=== PATIENT | female | born 1960 | race Caucasian/White ===

== ENCOUNTER 2023-07-17 15:34 | Outpatient (RCR) | payer OTHER ==
[~2023-07-17 15:34] MED LIST: ALBUTEROL0.09 MG/A1 IH; AMITRIPTYLINE H25 M1 PO; ANTIVERT 12.512.5 MG PO; ASPIRIN 81M81 MG/TA2 PO; B-12 100 MCG PO; CALCIUM 600-D 61 TAB PO; CEPHALEXIN500 M1 PO; CIPRO 500MG TA500 MG PO; COLESTID 1GM1 G PO; CREON 60000 U-11 ECC PO; CYMBALTA 60MG60 MG PO; DITROPAN 5MG TAB5 MG PO; ERYTHROCIN STE250 M1 PO; ESTRACE 1MG1 MG/TAB PO; FLOMAX 0.40.4 MG/CAP PO; IBU800 M1 PO; IBUPROFEN 200200 MG PO; LEVAQUIN 5500 MG/TAB PO; LINZESS290CAP; MOBIC 7.5MG7.5 MG PO; MOTRIN 800800 MG/TAB PO; MOTRIN SUSP20 MG/ML PO; MULTI VITAMINS1 TAB PO; MYRBETR50MG PO; NEURONTIN100 MG/CAP PO; NORCO 325 MG-51 TAB PO; NORVASC 5MG5 MG/TAB PO; ONE-A-DAY ESSE1 EACH PO; PERCOCET 5/321 UDTAB PO; PRILOSEC 20MG20 MG PO; PYRIDIUM 100MG100 MG PO; REGLAN 10MG10 MG/TAB PO; ROCEPHIN2 GM IJ; RT SPIRIVA18 MCG IH; SENOKOT S 50 MG1 TAB PO; SYNTHROID0.088 MG/T PO; TAMBOCOR50 MG PO; THEO-DUR 2200 MG/TAB PO; TOPROL XL 25MG25 MG PO; TOVIAZ8 MG PO; UNIPHYL 400MG400 MG PO; UREX1 GM PO; VICODIN PO; XANAX 0.5MG0.5 MG PO; [UNRECOGNIZED DRUG - CODE] IV
== END 2023-08-11 | disposition home or self-care (01) ==
LOC: WSOH
DX: S66.211D Strain of extensor muscle, fascia and tendon of right thumb at wrist and hand level, subsequent encounter (principal); X58.XXXD Exposure to other specified factors, subsequent encounter

== ENCOUNTER → 2024-03-23 | Outpatient (CLI) | payer BC | LOC: MC.RAD 06:49 | DX: Z12.31 Encounter for screening mammogram for malignant neoplasm of breast (principal) ==

== ENCOUNTER 2024-05-14 11:08 | Emergency (ER) | payer BC ==
[~2024-05-14] VITALS: Ht 165.1 cm; Wt 115.5 kg
[2024-05-14 11:17] VITALS: TEMP 97.5
[2024-05-14] MEDS ORDERED: Rocuronium 50 MG/5 ML Multi-Dose VIAL IV ONE (11:43)
[2024-05-14] MEDS ORDERED: Etomidate 20 MG/10 ML VIAL IV ONE (11:43)
[2024-05-14 11:53] LABS: HEMOGLOBIN 11.1 g/dl (12.5-16.0); MEAN CELL VOLUME 89 fl (80.0-100.0); MEAN CORPUSCULAR HEMOGLOBIN 28 pg (27-31); MEAN CORPUSCULAR HGB CONC 32 g/dl (33.0-37.0); MEAN PLATELET VOLUME 9.9 fl (7.4-10.4); PLATELET COUNT 633 K/mm3 (130-400); RED BLOOD COUNT 3.93 M/mm3 (4.10-5.30); REDCELL DISTRIBUTION WIDTH-CV 13.2 % (11.5-14.5)
[2024-05-14 11:54] LABS: HEMATOCRIT 35.1 % (37.0-47.0)
[2024-05-14] MEDS ORDERED: Amiodarone 450 MG in D5W Excel 250 ML IV SCH ×2 (12:02→18:02)
[2024-05-14 12:15] LABS: BILIRUBIN,TOTAL 0.4 mg/dL (0.2-1.2); CALCIUM 9.2 mg/dL (8.4-10.2); CREATININE, serum 0.94 mg/dL (0.57-1.11); POTASSIUM 3.1 mEq/L (3.5-4.5); TOTAL PROTEIN 7.1 g/dl (6.2-8.1)
[2024-05-14 12:21] LABS: TROPONIN-I 0.026 ng/mL (0.00-0.033)
[2024-05-14 12:28] LABS: BAND 2 % (0-10); LYMPHOCYTE 29 % (20.0-51.0); NEUTROPHILS 64 % (42.0-75.2); NUCLEATED RED BLOOD CELL 2 (0-6); PLATELET ESTIMATE INCREASED (NORMAL)
[2024-05-14] MEDS ORDERED: Heparin/D5W 250 ML IV SCH (12:30)
[2024-05-14] MEDS ORDERED: Heparin 5,000 UNITS/ML 1 ML VIAL IV PRN (12:30)
[2024-05-14] MEDS ORDERED: Heparin 5,000 UNITS/ML 1 ML VIAL IV ONE (12:30)
[2024-05-14 12:55] LABS: INR 1.1 (0.8-3.0); PROTHROMBIN TIME 11.6 SECONDS (9.7-12.8)
[2024-05-14 12:58] LABS: PARTIAL THROMBOPLASTIN TIME 25.6 SECONDS (26.0-37.0)
[2024-05-14 13:15] VITALS: BP 164/106; PULSE 108
--- NOTE | 2024-05-14 15:10 | NUR ---
GLORIA notified that patient arrived to ED and had a code blue called shortly after arrival. SW arrived to ED, staff still working with patient and preparing to intubate. Family was in family waiting room. GLORIA met with patient's son and her sister Nikki. ED attending came to update on patient's status. GLORIA verified patient's information with her son . He states that he lives with her in [place], that she does not have a PCP due to Dr. Pryor retiring and patient not been assigned to new provider. Family reported that patient had surgery at [facility] on Saturday and returned home yesterday. Son reported that patient was fine this morning so he went to work. Patient does not have a DPOA assigned nor a living will per family report. son is her only child and is next of kin. signed transport consent for [facility] to life flight patient to [facility]. Emotional support provided. Patient's sister escorted to patient's room to sit with her per request. Son remained in waiting room. No further needs at this time. Patient was scheduled to be picked up for flight within approximately 30 minutes of visit time.
== END 2024-05-14 13:33 | disposition short-term general hospital (02) ==
LOC: COL.ER 11:08
PROVIDERS: Personal Emergency Response Attendant
DX: I21.9 Acute myocardial infarction, unspecified (principal)
CPT/HCPCS: A4314; J0282; J1644; J2704; J7060